=== PATIENT | female | born 1990 | race Two or more races ===

== ENCOUNTER 2023-07-18 07:54 | Day surgery (SDC) | payer MEDICAID ==
[~2023-07-18 07:54] MED LIST: Lactated Ringers 1,000 ML IV SCH; Sodium Chloride 0.9% 10 ML Syringe FLUSH PRN; Sodium Chloride 0.9% 10 ML Syringe FLUSH SCH
[2023-07-18] MEDS ORDERED: Midazolam 1 MG/ML 2 ML SDV ONE (09:08)
[2023-07-18] MEDS ORDERED: fentaNYL 100 MCG/2 ML SDV ONE (09:08)
[2023-07-18] MEDS ORDERED: Propofol 200 MG/20 ML SDV ONE (09:08)
[2023-07-18] MEDS ORDERED: Lidocaine 1% 4 ML ONE (09:09)
[2023-07-18] MEDS ORDERED: ePHEDrine 50 MG/ML SDV ONE (09:37)
== END 2023-07-18 11:09 | disposition home or self-care (01) ==
LOC: JD.SDS 07:54
PROVIDERS: ATTEND Surgery
DX: D50.9 Iron deficiency anemia, unspecified (principal); K29.50 Unspecified chronic gastritis without bleeding; K21.00 Gastro-esophageal reflux disease with esophagitis, without bleeding; K44.9 Diaphragmatic hernia without obstruction or gangrene; Z79.899 Other long term (current) drug therapy; Z98.84 Bariatric surgery status
CPT/HCPCS: 43239; J2250; J2704; J3010; J7120; 00813; J3490